=== PATIENT | male | born 1995 | race Caucasian/White ===

== ENCOUNTER 2018-07-12 23:09 | Emergency (ER) | payer OTHER ==
--- NOTE | 2018-07-12 23:20 | EDPHY ---
H & P Stated Complaint: LEFT shoulder dislocation playing volleyball. +2 pulse Time Seen by Provider: 07/12/18 23:20 HPI/ROS: HPI CHIEF COMPLAINT: Left shoulder dislocation. HISTORY OF PRESENT ILLNESS: The patient is otherwise healthy 23-year-old male, no significant medical history but has had previous 8 left shoulder dislocations. Patient arrives to the emergency room stating he was playing volleyball tonight and his left shoulder became dislocated. Denies any focal weakness numbness or tingling. He complains of left lateral shoulder pain. Patient denies any chest pain or shortness of breath. Good distal pulse, good cap refill, good community assistant strength. Past Medical History: Denies significant medical history Past Surgical History: Denies significant surgical history Social History: Denies drugs alcohol tobacco. [facility], [place] student Family History: Noncontributory ROS REVIEW OF SYSTEMS: 10 Systems were reviewed and negative with the exception of the elements mentioned in the history of present illness. Exam Constitutional triage nursing summary reviewed, vital signs reviewed, awake/ alert. Vital signs stable Eyes normal conjunctivae and sclera, EOMI, PERRLA. HENT normal inspection, atraumatic, moist mucus membranes, no epistaxis, neck supple/ no meningismus, no raccoon eyes. Respiratory clear to auscultation bilaterally, normal breath sounds, no respiratory distress, no wheezing. Cardiovascular rate normal, regular rhythm, no murmur, no edema, distal pulses normal. Gastrointestinal soft, non-tender, no rebound, no guarding, normal bowel sounds, no distension, no pulsatile mass. Genitourinary no CVA tenderness. Musculoskeletal left arm: Neurovascular intact good distal pulse, good cap refill, axillary nerve intact, limited range of motion due to anterior shoulder dislocation on exam. no midline vertebral tenderness, full range of motion, no calf swelling, no tenderness of extremities, no meningismus, good pulses, neurovascularly intact. Skin pink, warm, & dry, no rash, skin atraumatic. Neurologic awake, alert and oriented x 3, AAOx3, moves all 4 extremities equally, motor intact, sensory intact, CN II-XII intact, normal cerebellar, normal vision, normal speech. Psychiatric normal mood/affect. Heme/Lymph/Immune no lymphadenopathy. Differential Diagnosis: Includes but is not limited to in a particular order anterior shoulder dislocation, fracture Medical Decision Making: Plan for this patient I was able to reduce it without conscious sedation. He tolerated this very well. Post reduction x-ray pending. He is neurovascular intact, axillary nerve intact, patient placed in a sling. Re-evaluation: 2330: I was able to apply direct downward traction and some external rotation and the patient's left anterior shoulder dislocation was relocated. Post relocation is placed in a sling. He is neurovascular intact good cap refill. X-ray pending. Patient tolerated this very well. I encouraged patient to follow up with Orthopedics as this is his 9th shoulder dislocation. X-ray left shoulder reviewed. Appropriate placement. No fracture. Patient re-examined 2347: Patient resting comfortably no acute distress. He has left arm is neurovascularly intact. Good distal pulse, good cap refill, axillary nerve intact. Sensation intact. Good community assistant strength. Recommend following up closely with Orthopedics. Sling for comfort. Return precautions discussed. Source: Patient - Personal History Current Tetanus/Diphtheria Vaccine: Yes Current Tetanus Diphtheria and Acellular Pertussis (TDAP): Yes - Medical/Surgical History Hx Asthma: No Hx Chronic Respiratory Disease: No Hx Diabetes: No Hx Cardiac Disease: No Hx Renal Disease: No Hx Cirrhosis: No Hx Alcoholism: No Hx HIV/AIDS: No Hx Splenectomy or Spleen Trauma: No Other PMH: numerous L shoulder dislocations - Social History Smoking Status: Never smoked Constitutional: Initial Vital Signs Temperature (C) 37.1 C 07/12/18 23:11 Heart Rate 105 H 07/12/18 23:11 Respiratory Rate 20 07/12/18 23:11 Blood Pressure 170/94 H 07/12/18 23:11 O2 Sat (%) 97 07/12/18 23:11 O2 Delivery Mode Room Air Allergies/Adverse Reactions: No Known Allergies Allergy (Unverified 07/12/18 23:11) Home Medications: Medication Instructions Recorded NK [No Known Home Meds] 07/12/18 Departure - Departure Disposition: Home, Routine, Self-Care Clinical Impression: Shoulder dislocation Condition: Good Instructions: Shoulder Dislocation (ED) Additional Instructions: 1. Recommend ice. 2. Recommend anti-inflammatory pain medicine Tylenol and/or Motrin every 6-8 hours for pain control 3. I do recommend he follow up with Orthopedics as you have had recurrent shoulder dislocation. You should follow up with Orthopedics stay in your sling until seen by them. Referrals: NONE *PRIMARY CARE P,. [Primary Care Provider] - As per Instructions Tommy Ma MD [Medical Doctor] - As per Instructions
[2018-07-12] MEDS ORDERED: IBUPROFEN 800 MG TAB PO ONE (23:53)
[2018-07-12] MEDS ORDERED: ACETAMINOPHEN 500 MG TAB PO ONE (23:53)
[2018-07-13 00:07] VITALS: BP 146/80
== END 2018-07-13 00:04 | disposition home or self-care (01) ==
PROC: 0RSKXZZ Reposition Left Shoulder Joint, External Approach (ICD-10-PCS; principal; 2018-07-12)
DX: M24.412 Recurrent dislocation, left shoulder (principal); Y93.68 Activity, volleyball (beach) (court)